=== PATIENT | male | born 1985 | race Caucasian/White ===

== ENCOUNTER 2022-07-29 06:32 | Day surgery (SDC) | payer BC ==
[~2022-07-29] VITALS: Ht 185.4 cm; Wt 110.5 kg
[2022-07-29] MEDS ORDERED: CRESTOR20 MG PO (07:22)
[2022-07-29] MEDS ORDERED: PRINIVIL40 MG PO (07:22)
[2022-07-29] MEDS ORDERED: PREDNISONE20 MG PO (07:22)
[2022-07-29] MEDS ORDERED: HUMIRA PEN40 MG/0.4 SQ (07:23)
[2022-07-29 08:20] VITALS: BP 129/99; PULSE 99; TEMP 97.1
[2022-07-29 08:35] VITALS: BP 132/89; PULSE 92; TEMP 97.1
[2022-07-29 08:50] VITALS: BP 137/79; PULSE 90
[2022-07-29 09:05] VITALS: BP 128/85; PULSE 90
[2022-07-29 09:20] VITALS: BP 146/87; PULSE 84
--- NOTE | 2022-07-29 09:25 | NUR ---
0835 RETURNS TO ROOM 2 PER CART. AWAKE, ALERT. RESP UNLABORED. AMBULATES TO RECLINER WITH STANDBY ASSIST. DENIES NAUSEA, ABD/CHEST PAIN AND DYSPHAGIA. VITAL SIGNS OBTAINED. CALL LIGHT AT SIDE. IN ROOM 0837 DR. JAIMES HERE TO VISIT WITH PATIENT 0850 T[address] PO JUICE WITHOUT NAUSEA. SWALLOWS WITHOUT DIFFICULTY 0857 DISCHARGE INSTRUCTIONS REVIEWED. PATIENT VERBALIZES UNDERSTANDING. COPY PROVIDED IN DISCHARGE FOLDER. 0936 DRESSES SELF
[2022-07-29 09:26] VITALS: BP 132/89; PULSE 97
== END 2022-07-29 09:26 | disposition home or self-care (01) ==
LOC: SDCO 06:32
DX: K57.30 Diverticulosis of large intestine without perforation or abscess without bleeding (principal); D12.8 Benign neoplasm of rectum; K64.0 First degree hemorrhoids; K29.50 Unspecified chronic gastritis without bleeding; K21.00 Gastro-esophageal reflux disease with esophagitis, without bleeding; I10 Essential (primary) hypertension; F17.210 Nicotine dependence, cigarettes, uncomplicated; Z79.899 Other long term (current) drug therapy
CPT/HCPCS: J2704; J3010; J7120